=== PATIENT | male | born 1990 ===

== ENCOUNTER 2024-02-22 17:49 | Emergency (ER) | payer OTHER, SELFPAY ==
[2024-02-22 17:59] VITALS: BP 128/77; PULSE 75; TEMP 36.6; O2SAT 98; BMI 27.3
--- NOTE | 2024-02-22 18:10 | XRR_ITS ---
PROCEDURE INFORMATION: Exam: XR Right Femur Exam date and time: 02/22/2024 6:16 PM Age: 33 years old Clinical indication: Injury or trauma; Other: Laceration; Work related; Thigh or upper leg; Right; Foreign body involvement not specified; Additional info: Laceration, R/O fb TECHNIQUE: Imaging protocol: Radiologic exam of the right femur. Views: 2 views. COMPARISON: No relevant prior studies available. FINDINGS: Bones/joints: Normal mineralization and alignment. No evidence of acute fracture or dislocation. Mild degenerative change of the right femoroacetabular joint. Soft tissues: Unremarkable. No radiopaque foreign body identified. XR/XR femur RT min 2V* [id number] IMPRESSION: 1. No evidence of acute fracture or dislocation. 2. No radiopaque foreign body.
--- NOTE | 2024-02-22 18:12 | W.ED.WOUNDLC ---
HPI - Wound/Laceration General: Chief Complaint: Wound/Laceration Stated Complaint: Right leg injuy, leg cut open and bleeding Time Seen by Provider: 02/22/24 18:05 Source: patient Mode of arrival: ambulatory Limitations: no limitations History of Present Illness: 33yo male here with family for laceration of the right upper leg that occurred at approximately 1530. Patient reports he was at work loading a barrel loader and cleaner when the bucket shifted and he fell out scraping his leg on the bucket. Reports laceration to the right upper inner leg. Bleeding did stop prior to arrival. Patient reports he is able to ambulate with no difficulty. He states his tetanus is within the past 5 years. He denies any other injury or concern at this time. Associated symptoms: Denies fever(s) Related Data Previous Rx's Medication Instructions Recorded cephalexin 500 mg capsule 500 mg PO Q6H #12 caps 02/22/24 Allergies Allergy/AdvReac Type Severity Reaction Status Date / Time No Known Allergies Allergy Verified 02/22/24 18:03 Review of Systems Const: Denies: fever(s) Musc: Denies: extremity pain Skin/Breast: Reports: other (laceration right upper leg) Garfield/Lymph: Denies: easy bleeding Physical Exam Const: COMMON NORMALS: no acute distress and patient oriented x3 GENERAL APPEARANCE: cooperative OTHER: Patient is sitting upright on the stretcher no acute distress. He is able to give history with no difficulty. He is interactive with exam appropriately. Family is at bedside HENMT: COMMON NORMALS: normocephalic HEAD & SCALP: normocephalic Neck/C-Spine: COMMON NORMALS: full ROM Chest: CHEST: Yes Symmetrical chest wall rise Resp: COMMON NORMALS: normal respiratory effort Extremity: RIGHT LOWER EXTREMITY: Yes upper leg (FROM) Neuro: COMMON NORMALS: patient oriented x3 Skin: SKIN IMAGES (MALE): 1. 5cm laceration with surrounding abrasions TRAUMA: laceration (right upper leg) irregular and contaminated; not actively bleeding, no pulsatile bleeding and no foreign bodies present Course Vital Signs: Vital signs: Vital Signs Temperature 97.9 F 02/22/24 17:59 Pulse Rate 75 02/22/24 17:59 Blood Pressure 128/77 02/22/24 17:59 Pulse Oximetry 98 02/22/24 18:25 Oxygen Delivery Me thod Room Air 02/22/24 18:25 MDM - Wound/Laceration Medical Decision Making 33yo male here with family for evaluation of a laceration to the right upper leg that occurred at approximately 1530 this afternoon when he fell while loading a barrel loader and cleaner and struck his leg on the bucket. Patient reports that the bleeding did stop prior to arrival. He reports he is able to ambulate with no difficulty. States tetanus up-to-date. Denies any other injury or concern at this time. Patient is nontoxic in appearance. Vital signs are stable. No fracture or foreign body noted on x-ray imaging, pending radiology review. No localized copiously irrigated with normal saline prior to closure with sutures. Short course cephalexin was sent to patient's pharmacy to help prevent infection. Discussed wound care and avoidance of submersion under any water. Recommend follow-up with primary care/urgent care in 7 to 10 days for suture removal, sooner if needed. Advised return to emergency department if any rapid worsening symptoms, further injury, and as needed. Patient and family state understanding have no further questions or concerns at this time. Differential Diagnosis Likely laceration XR interpretation done by ED provider, pending radiology final review ED provider radiology interpretation(s): No acute bony abnormality noted. No foreign body noted. Discharge Plan Discharge Patient Disposition: Home Clinical Impression: Laceration of right thigh Qualifiers: Encounter type: initial encounter Qualified Code(s): S71.111A - Laceration without foreign body, right thigh, initial encounter Condition: Stable Prescriptions: New cephalexin 500 mg capsule 500 mg PO Q6H Qty: 12 0RF Discharge Orders: Discharge ED (Routine); Ordered 02/22/24 Ordered By: Roosevelt Jensen Discharge Diet: Usual diet Discharge Activity: Increase activity as tolerated Patient Instructions: Care For Your Stitches (ED), Pain Management Activity Restrictions/Additional Instructions: Cephalexin has been sent to your pharmacy to help prevent infection Gently wash the area twice daily with soap and water, then apply antibiotic ointment Try to keep the area as clean and dry as possible Avoid submersion under any water (ro[place], lakes, ponds, hot tubs, swimming pool, etc.). Clean water can run over the wound as when showering. Follow-up with primary care/urgent care for suture removal in 7 to 10 days Return to the emergency department if any further injury, concern for infection, and as needed Coding Level of Care Code ED Communications Assistant for Nataliia Morris
[2024-02-22 18:25] VITALS: O2SAT 98
[2024-02-22 19:24] VITALS: BP 151/72; PULSE 88; RESP 16; O2SAT 96
--- NOTE | 2024-02-22 19:39 | PC.NURSE ---
Stitches covered with telfa and tegaderm. Patient instructed to keep stitches clean and dry for 24 hours. Patient verbalizes understanding of discharge with no questions.
== END 2024-02-22 19:37 | disposition home or self-care (01) ==
PROVIDERS: Emergency Provider Nurse Practitioner
DX: S71.111A Laceration without foreign body, right thigh, initial encounter (principal); X58.XXXA Exposure to other specified factors, initial encounter
CPT/HCPCS: 73552; 99283